=== PATIENT | male | born 1975 | race Caucasian/White ===

== ENCOUNTER 2024-03-13 09:50 | Inpatient (IN) ==
--- NOTE | 2024-03-13 10:24 | Emergency Department Note ---
Impression & Plan Sepsis, Complicated UTI (urinary tract infection), BPH NOS w ur obs/LUTS, Perry catheter in place, BLANE (acute kidney injury) ED Provider Note NAME: TIMOTHY MOLINA AGE: 48 SEX: M : 1975 ARRIVES VIA: Walk-In INFORMANT: Patient ED PROVIDER(S): Mina Johnson MD CHIEF COMPLAINT: Shaking, fevers, perry catheter PLAN: Disposition: Admit MEDICAL DECISION MAKING: The patient is a 48y/o gentleman with past medical history of BPH with recent urinary retention who presents to the emergency department for evaluation of rigors and fevers that began last night in the setting of having cystoscopy yesterday and replacement of catheter after not voiding throughout the day. He reports feeling nauseated and has not been able to keep anything down. He denies any cough or congestion. Denies any diarrhea. On evaluation the patient is uncomfortable, febrile 38.9 with heart rate in the 120s and blood pressure stable. He appears clinically dry. He is rigors. Abdomen is nontender. WBC 12.4 K with neutrophil predominance without left shift. H/H and platelets within normal limits. Chemistry without metabolic acidosis. Creatinine is 1.49 with BUN of 24 consistent with patient's clinically dry appearance/blane. Lactic acid is elevated at 3.8 prior to IV fluid hydration improved to 1.3 subsequently. Total bilirubin is 1.5 with direct bilirubin 0.4, nonspecific with LFTs otherwise normal. HS troponin is 10.7, within normal limits. Procalcitonin is elevated 9.7 consistent with suspicion for sepsis. UA is consistent with infection with WBCs and 4+ bacteria but with negative nitrites. Treatment was initiated for sepsis with IV fluid hydration with a total of 2500 cc of normal saline ordered >30cc/kg for IBW. Empiric antibiotic treatment initiated with IV ceftriaxone. CT of the Abd/pelvis was performed and demonstrates evidence of prostatitis. Case was discussed with Dr. Lopez, [facility] hospitalist, who will evaluate the patient for admission. Triage Nursing notes reviewed and agree them. Prior/external medical records reviewed Vital Signs: reviewed Differential diagnosis: Sepsis, UTI, pneumonia, metabolic, electrolyte abnormalities, cardiac sources, intracerebral event, toxicologic, neurologic, as well as other pathologies. ER treatment provided: See below. Diagnostics interpreted by me: ECG: Sinus tachycardia, 122 bpm,, significant baseline artifact, no overt ST elevation or depression, QTc 418, QRS 86. Cardiac Monitoring: An order for continuous cardiac monitoring was placed and demonstrated Sinus tachycardia, 122 bpm. Laboratory studies: See below Imaging studies: See below Consultation(s): Case was discussed with Dr. Lopez, [facility] hospitalist, who will evaluate the patient for admission. HPI: The patient is a 48y/o gentleman with past medical history of BPH with recent urinary retention who presents to the emergency department for evaluation of rigors and fevers that began last night in the setting of having cystoscopy yesterday and replacement of catheter after not voiding throughout the day. He reports feeling nauseated and has not been able to keep anything down. He denies any cough or congestion. Denies any diarrhea. ROS: See above HPI for pertinent positives & negatives. A total of 10 systems reviewed and were otherwise negative. VITALS:See Below PHYSICAL EXAMINATION: GENERAL: Awake, alert, ill-appearing, rigorous, in no distress HENT: Normocephalic, atraumatic. Oropharynx with dry mucous membranes and otherwise unremarkable. EYES: Normal conjunctiva. Sclera non-icteric. NECK: Supple. No nuchal rigidity. FROM. No JVD. RESPIRATORY: Clear to auscultation. CARDIAC: Tachycardic rate, normal rhythm. Extremities warm and well perfused. Pulses equal. ABDOMEN: Soft, non-distended. No tenderness to palpation. No rebound or guarding. No masses. : Perry catheter in place draining dark yellow urine. MUSCULOSKELETAL: Chest examination reveals no tenderness. The back is symmetrical on inspection without obvious abnormality. There is no CVA tenderness to palpation. No joint edema. LOWER EXTREMITIES: Calves are equal size bilaterally and non-tender. No edema. No discoloration. NEURO: No focal sensory or motor deficits noted. SKIN: No rash or jaundice noted. ED COURSE: Critical Care: I have personally spent greater than 45 minutes of critical care time in the direct management of this patient. This includes bedside care, interpretation of diagnostic studies, and testing, discussion with consultants, patient, and family members, and other required patient management activities. This 45 minutes is in excess of all separately billable procedures. Mina Johnson MD Past Med/Surg History Problem List (Updated 03/14/24 @ 01:58 by Mina Johnson MD) Perry catheter in place (Acute) Sepsis (Acute) BLANE (acute kidney injury) (Acute) Complicated UTI (urinary tract infection) (Acute) BPH NOS w ur obs/LUTS (Acute) Acute urinary retention Prediabetes Surgical History 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 [facility] duodenal blockage Family History Father Prostate cancer Hypertension Sister Thymoma stage 2 Social History Smoking Status: Never smoker Second Hand Exposure: No; Hx Alcohol Use: No Hx Substance Use: No Preferred Language: Citizen Of [place] Communication Ability: Effective Visual Impairment: Limited Hearing Ability: Normal Fitter Placer Required: No Beliefs That Will Affect Care: None marital status: Single Current Living Situation: Family current occupational status: employed Other Information That Helps Us Care for You: No Feels Safe at Home: Yes and No Is there a partner from a previous relationship who is making you feel unsafe now?: No Any Concerns about Your Family Situation: No Would You Like to Speak to Someone About Your Situation: No Safety Concerns: Feels Safe At This Time Childhood Exposure to Second-Hand Smoke: Yes Diet: regular caffeine: Yes Dental Care, Regularly: No Physical Activity Frequency: Daily Physical Activity Frequency Comment: active lifestyle Seatbelt Use: always Sunscreen Use: Yes Assistive Devices: Glasses Allergies Allergies Allergy/AdvReac Type Severity Reaction Status Date / Time No Known Drug Allergies Allergy Verified 02/23/24 08:57 Home Meds Previous Rx's Medication Instructions Recorded tamsulosin 0.4 mg capsule (Flomax) 0.4 mg PO DAILY #30 caps 02/23/24 oxybutynin chloride 5 mg 5 mg PO DAILY #90 tabs 03/12/24 tablet,extended release 24 hr Results & Data (ED) Vital Signs Vital Signs - 24 hr 03/13/24 10:07 03/13/24 10:51 03/13/24 11:08 Temperature 38.9 C H Temperature Source Oral Pulse Rate 125 H 117 H Pulse Rate from SpO2 Sensor Respiratory Rate 22 22 Respiratory Effort / Characteristics Non-Labored Spontaneous Respiratory Depth Normal Blood Pressure 124/73 101/63 Blood Pressure Mean 90 75 Blood Pressure Position Sitting Pulse Oximetry 99 94 92 Oxygen Delivery Method Room Air Room Air Nasal Cannula Oxygen Flow Rate 0 Sepsis Recent Fever Within 48 Hours Yes Sepsis New/Unexplained Change in Mental Status No Sepsis Action Taken by Nursing Physician Notified Oxygen Flow Rate - Titration 2 Pulse Oximetry Post Tiitration 94 03/13/24 11:12 03/13/24 11:15 03/13/24 11:15 Temperature Temperature Source Pulse Rate 105 H Pulse Rate from SpO2 Sensor 106 H Respiratory Rate 21 Respiratory Effort / Characteristics Respiratory Depth Blood Pressure 96/63 L 102/58 L 102/58 L Blood Pressure Mean 74 71 71 Blood Pressure Position Pulse Oximetry 94 Oxygen Delivery Method Oxygen Flow Rate Sepsis Recent Fever Within 48 Hours Sepsis New/Unexplained Change in Mental Status Sepsis Action Taken by Nursing Oxygen Flow Rate - Titration Pulse Oximetry Post Tiitration 03/13/24 11:15 03/13/24 11:15 03/13/24 11:30 Temperature Temperature Source Pulse Rate 101 H 98 H Pulse Rate from SpO2 Sensor Respiratory Rate 18 20 Respiratory Effort / Characteristics Respiratory Depth Blood Pressure 102/58 L 102/58 L 99/61 L Blood Pressure Mean 71 71 74 Blood Pressure Position Pulse Oximetry 95 97 Oxygen Delivery Method Nasal Cannula Nasal Cannula Oxygen Flow Rate 2 2 Sepsis Recent Fever Within 48 Hours Sepsis New/Unexplained Change in Mental Status Sepsis Action Taken by Nursing Oxygen Flow Rate - Titration Pulse Oximetry Post Tiitration 03/13/24 11:45 03/13/24 12:00 03/13/24 12:10 Temperature Temperature Source Pulse Rate 100 H 97 H 102 H Pulse Rate from SpO2 Sensor Respiratory Rate 20 18 Respiratory Effort / Characteristics Respiratory Depth Blood Pressure 114/61 100/61 Blood Pressure Mean 73 78 Blood Pressure Position Pulse Oximetry 95 96 Oxygen Delivery Method Nasal Cannula Nasal Cannula Oxygen Flow Rate 2 2 Sepsis Recent Fever Within 48 Hours Sepsis New/Unexplained Change in Mental Status Sepsis Action Taken by Nursing Oxygen Flow Rate - Titration Pulse Oximetry Post Tiitration Laboratory Data Attestation: I reviewed the patient's lab results. 03/13/24 10:28 03/13/24 10:28 Lab Results 03/13/24 03/13/24 03/13/24 Range/Units 10:28 10:34 10:40 WBC 12.40 H (4.8-10.8) K/ul RBC 5.39 (4.70-6.10) M/uL Hgb 16.2 (14.0-18.0) g/dl POC Hgb 16.3 (14.0-18.0) g/dl Hct 47.7 (42.0-52.0) % POC Hct 48 (42-52) % MCV 88.5 (80.0-100.0) fL MCH 30.1 (25.0-34.0) pg MCHC 34.0 (32.0-36.0) g/dL RDW Std Deviation 42.7 (36.4-46.3) fL RDW Coeff of Mateo 13.1 (11.5-14.5) % Plt Count 188 (130-400) K/uL MPV 10.2 (9.4-12.4) fL Immature Gran % (Auto) 0.4 % Neut % (Auto) 91.9 % Lymph % (Auto) 4.2 % [place] % (Auto) 3.3 % Eos % (Auto) 0.0 % Baso % (Auto) 0.2 % Neut # (Auto) 11.40 H (1.40-6.50) K/uL Lymph # (Auto) 0.52 L (1.20-3.40) K/uL [place] # (Auto) 0.41 (0.11-0.59) K/uL Eos # (Auto) 0.00 (0.00-0.50) K/uL Baso # (Auto) 0.02 (0.00-0.20) K/uL Immature Gran # (Auto) 0.05 (0.01-0.20) K/uL Toxic Vacuolation 1+ POC Sodium 136 (135-144) mmol/L Sodium 136 (136-145) mmol/L POC Potassium 3.9 (3.3-5.0) mmol/L Potassium 4.1 (3.5-5.1) mmol/L POC Chloride 98 L (101-112) mmol/L Chloride 99 (98-107) mmol/L Carbon Dioxide 26 (21-32) mmol/L POC Total CO2 23 L (24-31) mmol/L Anion Gap 11 (3-11) POC Anion Gap 20.0 (16-25) mmol/L POC BUN 23 H (7-18) mg/dl BUN 24 H (6-23) mg/dl Creatinine 1.49 H (0.6-1.4) mg/dl POC Creatinine 1.6 H (0.6-1.3) mg/dl Est Cr Clr Drug Dosing 67.5 ml/min Est GFR ( Amer) 63.0 ml/min Est GFR (Non-Af Amer) 54.3 ml/min BUN/Creatinine Ratio 16.1 (10-20) Glucose 124 H (70-99(Fasting)) mg/dl POC Glucose (other) 119 H (70-99) mg/dl Lactate 3.8 H* (0.4-2.0) mmol/L Calcium 9.3 (8.6-10.3) mg/dl POC Ioniz Calcium Haritha 1.11 L (1.12-1.32) mmol/l Magnesium 1.7 (1.7-2.4) mg/dl Total Bilirubin 1.5 H (0.2-1.0) mg/dl Direct Bilirubin 0.4 H (0-0.2) mg/dl AST 21 (13-39) U/L ALT 27 (7-52) U/L Alkaline Phosphatase 62 (34-104) U/L Troponin I High Sens 10.7 (0-20) pg/ml Total Protein 7.5 (6.0-8.3) gm/dl Albumin 4.5 (3.4-5.0) gm/dl Procalcitonin 9.78 H (0-0.5) ng/ml Urine Color Dark Yellow Urine Appearance Turbid A (Clear) Urine pH 5.5 (4.5-7.5) Ur Specific [place] 1.029 (1.000-1.030) Urine Protein 3+ H (Negative) Urine Glucose (UA) Negative (Negative) Urine Ketones Trace H (Negative) Urine Blood 3+ H (Negative) Urine Nitrite Negative (Negative) Urine Bilirubin Negative (Negative) Urine Urobilinogen Negative (Negative) Ur Leukocyte Esterase 2+ H (Negative) Urine WBC (Auto) >50 H (0-5) /hpf Urine RBC (Auto) >20 H (0-2) /hpf U Hyaline Cast (Auto) 6-10 H (0-2) /lpf U Epithel Cells (Auto) 3-5 H (0-2) /hpf Urine Bacteria (Auto) 4+ H (None Seen) Enterobacterales (PCR) DETECTED A (NotDetected) blaIMP Car res Gene PCR Not Detected (NotDetected) KPC-Carbap Res Gene PCR Not Detected (NotDetected) blaNDM Car Res Gene PCR Not Detected (NotDetected) OXA-48 Carbapenem Resis Gene (PCR) Not Detected (NotDetected) blaVIM Car Res Gene PCR Not Detected (NotDetected) CTX-M Gene Resistance (PCR) Not Detected (NotDetected) Bld Cult ID Panel PCR See PCR Comment (NotDetected) 03/13/24 Range/Units 12:10 WBC (4.8-10.8) K/ul RBC (4.70-6.10) M/uL Hgb (14.0-18.0) g/dl POC Hgb (14.0-18.0) g/dl Hct (42.0-52.0) % POC Hct (42-52) % MCV (80.0-100.0) fL MCH (25.0-34.0) pg MCHC (32.0-36.0) g/dL RDW Std Deviation (36.4-46.3) fL RDW Coeff of Mateo (11.5-14.5) % Plt Count (130-400) K/uL MPV (9.4-12.4) fL Immature Gran % (Auto) % Neut % (Auto) % Lymph % (Auto) % [place] % (Auto) % Eos % (Auto) % Baso % (Auto) % Neut # (Auto) (1.40-6.50) K/uL Lymph # (Auto) (1.20-3.40) K/uL [place] # (Auto) (0.11-0.59) K/uL Eos # (Auto) (0.00-0.50) K/uL Baso # (Auto) (0.00-0.20) K/uL Immature Gran # (Auto) (0.01-0.20) K/uL Toxic Vacuolation POC Sodium (135-144) mmol/L Sodium (136-145) mmol/L POC Potassium (3.3-5.0) mmol/L Potassium (3.5-5.1) mmol/L POC Chloride (101-112) mmol/L Chloride (98-107) mmol/L Carbon Dioxide (21-32) mmol/L POC Total CO2 (24-31) mmol/L Anion Gap (3-11) POC Anion Gap (16-25) mmol/L POC BUN (7-18) mg/dl BUN (6-23) mg/dl Creatinine (0.6-1.4) mg/dl POC Creatinine (0.6-1.3) mg/dl Est Cr Clr Drug Dosing ml/min Est GFR ( Amer) ml/min Est GFR (Non-Af Amer) ml/min BUN/Creatinine Ratio (10-20) Glucose (70-99(Fasting)) mg/dl POC Glucose (other) (70-99) mg/dl Lactate 1.3 (0.4-2.0) mmol/L Calcium (8.6-10.3) mg/dl POC Ioniz Calcium Haritha (1.12-1.32) mmol/l Magnesium (1.7-2.4) mg/dl Total Bilirubin (0.2-1.0) mg/dl Direct Bilirubin (0-0.2) mg/dl AST (13-39) U/L ALT (7-52) U/L Alkaline Phosphatase (34-104) U/L Troponin I High Sens (0-20) pg/ml Total Protein (6.0-8.3) gm/dl Albumin (3.4-5.0) gm/dl Procalcitonin (0-0.5) ng/ml Urine Color Urine Appearance (Clear) Urine pH (4.5-7.5) Ur Specific [place] (1.000-1.030) Urine Protein (Negative) Urine Glucose (UA) (Negative) Urine Ketones (Negative) Urine Blood (Negative) Urine Nitrite (Negative) Urine Bilirubin (Negative) Urine Urobilinogen (Negative) Ur Leukocyte Esterase (Negative) Urine WBC (Auto) (0-5) /hpf Urine RBC (Auto) (0-2) /hpf U Hyaline Cast (Auto) (0-2) /lpf U Epithel Cells (Auto) (0-2) /hpf Urine Bacteria (Auto) (None Seen) Enterobacterales (PCR) (NotDetected) blaIMP Car res Gene PCR (NotDetected) KPC-Carbap Res Gene PCR (NotDetected) blaNDM Car Res Gene PCR (NotDetected) OXA-48 Carbapenem Resis Gene (PCR) (NotDetected) blaVIM Car Res Gene PCR (NotDetected) CTX-M Gene Resistance (PCR) (NotDetected) Bld Cult ID Panel PCR (NotDetected) Administered Medications Heparin Sodium (Porcine) (Heparin Sod 5,000 Unit/0.5 Ml Vial) 5,000 units SQ Q8 MAYNOR Stop: 04/12/24 17:01 Last Admin: 03/13/24 18:44 Dose: Not Given Documented By: DARREN Magnesium Oxide (Magnesium Oxide 400 Mg Tab) 400 mg PO QAM MAYNOR Stop: 04/12/24 15:14 Last Admin: 03/13/24 15:59 Dose: 400 mg Documented By: NORIS Discontinued Medications Acetaminophen (Acetaminophen 325 Mg Tab) 650 mg PO Q4H PRN PRN Reason: Pain or Fever Stop: 04/12/24 17:01 Last Admin: 03/14/24 00:46 Dose: 650 mg Documented By: Admin: 03/13/24 17:26 Dose: 650 mg Documented By: DIAN Sodium Chloride (Nss) 1,000 mls @ 999 mls/hr IV .Q1H1M MAYNOR Stop: 03/13/24 12:30 Last Infusion: 03/13/24 11:43 Dose: Infused Documented By: Admin: 03/13/24 10:34 Dose: 999 mls/hr Documented By: Infusion: 03/13/24 10:34 Dose: Infused Documented By: Admin: 03/13/24 10:30 Dose: 999 mls/hr Documented By: FARHAT Acetaminophen (Ofirmev) 1,000 mg in 100 mls @ 400 mls/hr IV NOW STA Stop: 03/13/24 10:37 Last Infusion: 03/13/24 10:51 Dose: Infused Documented By: Admin: 03/13/24 10:30 Dose: 400 mls/hr Documented By: FARHAT Ceftriaxone Sodium (Rocephin) 2,000 mg in 50 mls @ 100 mls/hr IV NOW STA Stop: 03/13/24 10:52 Last Infusion: 03/13/24 11:00 Dose: Infused Documented By: Admin: 03/13/24 10:30 Dose: 100 mls/hr Documented By: FARHAT Famotidine (Pepcid 20mg Iv Push) 20 mg in 5 mls @ 2.5 mls/min IV NOW STA Stop: 03/13/24 10:32 Last Admin: 03/13/24 10:41 Dose: 2.5 mls/min Documented By: FARHAT Sodium Chloride (Nss) 500 mls @ 999 mls/hr IV .Q31M ONE Stop: 03/13/24 12:27 Last Infusion: 03/13/24 12:39 Dose: Infused Documented By: Admin: 03/13/24 12:06 Dose: 999 mls/hr Documented By: SANDRA Sodium Chloride (Nss) 500 mls @ 999 mls/hr IV .Q31M ONE Stop: 03/13/24 15:06 Last Infusion: 03/13/24 15:15 Dose: Infused Documented By: Admin: 03/13/24 14:44 Dose: 999 mls/hr Documented By: SANDRA Parenteral Electrolytes (Plasma-Lyte A Ph 7.4) 1,000 mls @ 125 mls/hr IV .Q8H MAYNOR Stop: 03/13/24 23:14 Last Infusion: 03/14/24 00:10 Dose: Infused Documented By: Admin: 03/13/24 16:10 Dose: 125 mls/hr Documented By: NORIS Ioversol (Optiray 320 100ml) 94 ml IV ONCE ONE Stop: 03/13/24 10:58 Last Admin: 03/13/24 10:57 Dose: 94 ml Documented By: NEIL Ondansetron HCl (Ondansetron Inj 2 Mg/Ml 2 Ml Vial) 4 mg IV NOW STA Stop: 03/13/24 10:32 Last Admin: 03/13/24 10:41 Dose: 4 mg Documented By: FARHAT Ondansetron HCl (Ondansetron Inj 2 Mg/Ml 2 Ml Vial) 4 mg IV NOW STA Stop: 03/14/24 00:53 Last Admin: 03/14/24 01:15 Dose: 4 mg Documented By: RODOLFO Imaging Data Radiologist's Impression: Chest X-Ray 03/13/24 10:18 XR chest 1V portable CLINICAL HISTORY: Sepsis. COMPARISON STUDY: No previous studies for comparison. FINDINGS: There are low lung volumes. Lungs are clear. There is no pneumothorax or pleural effusion. Cardiac size is normal. Mediastinal contours are normal. There is no evidence for pulmonary edema. IMPRESSION: No acute cardiopulmonary findings. ACT 112: Negative or not required by law. Electronically signed by: Clive Funez M.D. 03/13/2024 11:20 AM Abdomen/Pelvis CT 03/13/24 10:[address] WITH IV CONTRAST CT DOSE: 1433.38 mGy.cm HISTORY: ?urosepsis TECHNIQUE: Multiaxial CT images of the abdomen and pelvis were performed following the use of intravenous contrast. A dose lowering technique was utilized adhering to the principles of ALARA. COMPARISON STUDY: Abdomen and pelvis CT 02/19/2024. FINDINGS: Bibasilar linear densities consistent with subsegmental atelectasis. No pneumoperitoneum. No pneumatosis. Small fat-containing umbilical hernia again noted. No hepatic or splenic masses. The adrenal glands, pancreas, and kidneys are unremarkable. Normal gallbladder. The ureters are normal and course and caliber. The urothelial thickening within the left pelvis and left ureter have resolved. The bladder completely decompressed by Perry catheter which appears in good position. This results in difficult evaluation of the bladder. The bladder appears to be thick-walled with adjacent fat stranding. Therefore, this favors a cystitis. The prostate gland and seminal vesicles remain enlarged. Minimal perirectal fat stranding is likely reactive to the bladder. No definite bowel wall thickening or obstruction. Normal appendix. There is also mild fat stranding adjacent to the seminal vesicles and prostate gland which has slightly progressed. This could be due to an associated prostatitis. No fluid collections to suggest an abscess. Normal caliber abdominal aorta. No retroperitoneal or pelvic lymphadenopathy. No pelvic free fluid. IMPRESSION: 1. The bladder is decompressed by a Perry catheter which is in good position. 2. Bladder wall thickening with adjacent fat stranding likely representing a cystitis. 3. There is also mild fat stranding adjacent to the enlarged prostate gland and seminal vesicles which may represent an associated prostatitis. 4. Minimal perirectal fat stranding is likely reactive to the bladder/prostate gland abnormality. No definite bowel wall thickening to suggest a proctitis. 4. Additional findings as described above. ACT 112: Negative or not required by law. Electronically signed by: Gautam Holt M.D. 03/13/2024 11:21 AM Discharge Plan Visit Data Chief Complaint: Fever Stated Complaint: POSSIBLE INFECTION, NAUSEA, DEHYDRATED, FEVER ED Provider: Mina Johnson Discharge Problem: Sepsis, Complicated UTI (urinary tract infection), BPH NOS w ur obs/LUTS, Perry catheter in place, BLANE (acute kidney injury) Patient Disposition: Admitted As Inpatient Discharge Instructions Interventions: ED Discharge Assessment Last Done: 03/13/24 16:06 Discharge Problem: Sepsis Qualifiers: Sepsis type: sepsis due to unspecified organism Sepsis acute organ dysfunction status: unspecified Qualified Code(s): A41.9 - Sepsis, unspecified organism
[2024-03-13] MEDS: SODIUM CHLORIDE 0.9% 1,000 ML IV SCH (10:30)
[2024-03-13] MEDS: cefTRIAXone SODIUM 2,000 MG/50 ML BAG IV STA (10:30)
[2024-03-13] MEDS: ACETAMINOPHEN 1,000 MG/100 ML VIAL IV STA (10:30)
[2024-03-13] MEDS: FAMOTIDINE 20MG IV PUSH 20 MG/5 ML SYR IV STA (10:41)
[2024-03-13] MEDS: ONDANSETRON INJ 2 MG/ML 2 ML VIAL IV STA (10:41)
[2024-03-13] MEDS: OPTIRAY 320 100ml IV ONE (10:57)
[2024-03-13 10:59] LABS: Hematocrit (blood only) 47.7 % (42.0-52.0); Hemoglobin 16.2 g/dl (14.0-18.0); Mean Corpuscular Hemoglobin 30.1 pg (25.0-34.0); Mean Corpuscular Volume 88.5 fL (80.0-100.0); Mean Platelet Volume 10.2 fL (9.4-12.4); Platelet Count 188 K/uL (130-400); RDW Coefficient of Variation 13.1 % (11.5-14.5); RDW Standard Deviation 42.7 fL (36.4-46.3); Red Blood Count 5.39 M/uL (4.70-6.10)
[2024-03-13 11:06] LABS: Albumin Level 4.5 gm/dl (3.4-5.0); BUN Creatinine Ratio 16.1 (10-20); Bilirubin Direct 0.4 mg/dl (0-0.2); Bilirubin,Total 1.5 mg/dl (0.2-1.0); Calcium 9.3 mg/dl (8.6-10.3); Creatinine Clr Calc Pharmacy 67.5 ml/min; Est GFR (Non-African American) 54.3 ml/min; Magnesium 1.7 mg/dl (1.7-2.4); Potassium 4.1 mmol/L (3.5-5.1); Total Protein 7.5 gm/dl (6.0-8.3)
[2024-03-13 11:12] LABS: Troponin I High Sensitivity 10.7 pg/ml (0-20)
[2024-03-13 11:21] LABS: Toxic Vacuolation 1+
--- NOTE | 2024-03-13 11:21 | XRay Report ---
XR chest 1V portable CLINICAL HISTORY: Sepsis. COMPARISON STUDY: No previous studies for comparison. FINDINGS: There are low lung volumes. Lungs are clear. There is no pneumothorax or pleural effusion. Cardiac size is normal. Mediastinal contours are normal. There is no evidence for pulmonary edema. IMPRESSION: No acute cardiopulmonary findings. ACT 112: Negative or not required by law. Electronically signed by: Clive Funez M.D. 03/13/2024 11:20 AM
--- NOTE | 2024-03-13 11:22 | CT Scan Report ---
ABDOMEN AND PELVIS CT WITH IV CONTRAST CT DOSE: 1433.38 mGy.cm HISTORY: ?urosepsis TECHNIQUE: Multiaxial CT images of the abdomen and pelvis were performed following the use of intrave nous contrast. A dose lowering technique was utilized adhering to the principles of ALARA. COMPARISON STUDY: Abdomen and pelvis CT 02/19/2024. FINDINGS: Bibasilar linear densities consistent with subsegmental atelectasis. No pneumoperitoneum. N o pneumatosis. Small fat-containing umbilical hernia again noted. No hepatic or splenic masses. The a drenal glands, pancreas, and kidneys are unremarkable. Normal gallbladder. The ureters are normal and course and caliber. The urothelial thickening within the left pelvis and left ureter have resolved. The bladder completely decompressed by Vela catheter which appears in good position. This results in difficult evaluation of the bladder. The bladder appears to be thick-walled with adjacent fat strand ing. Therefore, this favors a cystitis. The prostate gland and seminal vesicles remain enlarged. Mini mal perirectal fat stranding is likely reactive to the bladder. No definite bowel wall thickening or obstruction. Normal appendix. There is also mild fat stranding adjacent to the seminal vesicles and p rostate gland which has slightly progressed. This could be due to an associated prostatitis. No fluid collections to suggest an abscess. Normal caliber abdominal aorta. No retroperitoneal or pelvic lymp hadenopathy. No pelvic free fluid. IMPRESSION: 1. The bladder is decompressed by a Vela catheter which is in good position. 2. Bladder wall thickening with adjacent fat stranding likely representing a cystitis. 3. There is also mild fat stranding adjacent to the enlarged prostate gland and seminal vesicles whic h may represent an associated prostatitis. 4. Minimal perirectal fat stranding is likely reactive to the bladder/prostate gland abnormality. No definite bowel wall thickening to suggest a proctitis. 4. Additional findings as described above. ACT 112: Negative or not required by law. Electronically signed by: Gautam Holt M.D. 03/13/2024 11:21 AM
[2024-03-13 11:24] LABS: Appearance Urine Turbid (Clear); Bacteria Urine Automated 4+ (None Seen); Bilirubin Urine Negative (Negative); Blood Urine 3+ (Negative); Color Urine Dark Yellow; Glucose Urine UA Negative (Negative); Ketones Urine Trace (Negative); Leukocyte Esterase Urine 2+ (Negative); Nitrite Urine Negative (Negative); Protein Urine 3+ (Negative); RBC Urine Automated >20 /hpf (0-2); Specific Gravity Urine 1.029 (1.000-1.030); Urobilinogen Urine Negative (Negative); WBC Urine Automated >50 /hpf (0-5); pH Urine 5.5 (4.5-7.5)
[2024-03-13 11:24] LABS: Basophils # (auto) 0.02 K/uL (0.00-0.20); Basophils % (auto) 0.2 %; Immature Granulocytes # (auto) 0.05 K/uL (0.01-0.20); Immature Granulocytes % (auto) 0.4 %; Lymphocytes # (auto) 0.52 K/uL (1.20-3.40); Lymphocytes % (auto) 4.2 %; Monocytes # (auto) 0.41 K/uL (0.11-0.59); Monocytes % (auto) 3.3 %; Neutrophils % (auto) 91.9 %
[2024-03-13] MEDS: SODIUM CHLORIDE 0.9% 500 ML IV ONE ×2 (12:06→14:44)
--- NOTE | 2024-03-13 12:13 | History & Physical Report ---
Date of Service March 13, 2024 Assessment & Plan (1) Complicated UTI (urinary tract infection): Plan: Sepsis, acute bacterial prostatitis Infected appearing UA Tachycardic, febrile, hypotensive, with leukocytosis post cystoscopy/catheter exchange No prior history of resistant infections on file Procalcitonin elevated consistent with gram-negative sepsis -Patient meets sepsis criteria. S/p 2000 cc NSS in the ER which meets IBW sepsis recommendations Repeat lactate normalized Continue Rocephin, follow UCx, BCx - Recommended extended course of anbx at least 2 weeks for acute bacterial prostatis (2) BPH NOS w ur obs/LUTS: Plan: Vela in place, bladder decompressed on CT Bladder scan as needed. No signs of obstruction at admitting assessment Can continue outpatient urology follow-up for BPH/LUTS; no evidence of acute obstruction on admission. (3) Prediabetes: Plan: BSG 124 admission. Goal [id number] Trend BMP daily, if above goal can add SSI (4) BLANE (acute kidney injury): Plan: BLANE -Admission creatinine 1.49, baseline creatinine approximately 1 Suspect prerenal in with urosepsis. Patient does have history of urinary obstruction however bladder is decompressed on CT Trend daily Plan DVT prophylaxis: Heparin subcu due to BLANE, convert to Lovenox if downtrending/improved Diet: Regular Disposition: PCU for gram-negative sepsis, downgrade once stabilized CODE STATUS: Full code History of Present Illness Primary Care Provider: Izaiah Eason DO Aguila is a 48-year-old male with past medical history of BPH, urinary retention, prediabetes presents to the ER with fever/rigors post cystoscopy and following catheter exchange. Third with minimal drainage overnight. CTA/P: Bladder decompressed and catheter in good position. Bladder wall thickening consistent with cystitis, fat stranding adjacent to prostate gland? Prostatitis. Perirectal fat stranding likely reactive Leukocytosis of 12.4, lactate elevated on admission at 3.8 Bilirubin mildly elevated without transaminitis Procalcitonin elevated ____ Patient seen in the ER with his present. Reports he had a Vela exchanged yesterday which relieved his obstruction however was nauseous and had felt progressively unwell overnight. Endorses fever, chills, rigors, some discomfort at his Vela site, and poor output. Feels very dehydrated. Is nauseous. Denies diarrhea/wellington colored stools. No chest pain or chest pressure. Denies other medical problems including heart problems and lung problems. Medical History: Reviewed Medications: Reviewed Surgical History: Reviewed Family history: Reviewed Allergies: Reviewed Social History: Denies tobacco/etoh use Code Status: Full Allergies Allergy/AdvReac Type Severity Reaction Status Date / Time No Known Drug Allergies Allergy Verified 02/23/24 08:57 Home Medications Medication Instructions Recorded Confirmed Type tamsulosin 0.4 mg capsule (Flomax) 0.4 mg PO DAILY #30 caps 02/23/24 03/13/24 Rx oxybutynin chloride 5 mg 5 mg PO DAILY #90 tabs 03/12/24 03/13/24 Rx tablet,extended release 24 hr Past Med/Surg History Problem List BLANE (acute kidney injury) Complicated UTI (urinary tract infection) BPH NOS w ur obs/LUTS Acute urinary retention Prediabetes Surgical History 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 old [facility] duodenal blockage Family History Father Prostate cancer Hypertension Sister Thymoma stage 2 Social History Smoking Status: Never smoker Second Hand Exposure: No; Hx Alcohol Use: No Hx Substance Use: No Preferred Language: [place] Communication Ability: Effective Visual Impairment: Limited Hearing Ability: Normal Blanket Binder Required: No marital status: Single Current Living Situation: Family current occupational status: employed Feels Safe at Home: Yes Childhood Exposure to Second-Hand Smoke: Yes Diet: regular caffeine: Yes Dental Care, Regularly: No Physical Activity Frequency: Daily Physical Activity Frequency Comment: active lifestyle Seatbelt Use: always Sunscreen Use: Yes Physical Exam Physical Exam: General: A&Ox3. NAD. Cooperative. HEENT: Atraumatic, normocephalic. NORMA. vision/hearing grossly intact Pulm: CTAB A&P. -wheezes, -rales, -rhonchi. Symmetrical chest rise. No increased work of breathing. No respiratory distress. Cardiac: RRR, -mrg. Radial pulses intact and symmetrical. Abdominal: Nontender, nondistended, soft. BS present. : Vela in place draining dark yellow urine Ext: warm, dry Results & Data Results & Data Vital Signs (Past 12 Hours) Vital Signs Temp Pulse Resp BP Pulse Ox O2 Del Method O2 Flow Rate 03/13/24 11:45 100 H 20 114/61 95 Nasal Cannula 2 03/13/24 11:30 98 H 20 99/61 L 97 Nasal Cannula 2 03/13/24 11:15 101 H 18 102/58 L 95 Nasal Cannula 2 03/13/24 11:15 102/58 L 03/13/24 11:15 102/58 L 03/13/24 11:15 102/58 L 03/13/24 11:12 105 H 21 96/63 L 94 03/13/24 11:08 92 Nasal Cannula 0 03/13/24 10:51 117 H 22 101/63 94 Room Air 03/13/24 10:07 38.9 C H 125 H 22 124/73 99 Room Air PG Care Time/CCT Total # of Minutes Spent Total Time Spent with Patient: Total time spent is greater than 50% in coordination of care (as documented) at patient's floor/unit and/or counseling patient: Coding Level of Care Code 47074 INT INP/OBS CARE 3/75MIN Diagnoses Complicated UTI (urinary tract infection) N39.0 BPH NOS w ur obs/LUTS N40.1 Prediabetes R73.03 BLANE (acute kidney injury) N17.9
[2024-03-13 12:28] LABS: iSTAT Creatinine 1.6 mg/dl (0.6-1.3); iSTAT Hemoglobin 16.3 g/dl (14.0-18.0); iSTAT Ionized Calcium 1.11 mmol/l (1.12-1.32); iSTAT Potassium 3.9 mmol/L (3.3-5.0)
[2024-03-13] MEDS: MAGNESIUM OXIDE 400 MG TAB PO SCH (15:59)
[2024-03-13] MEDS: PLASMA-LYTE A 1,000 ML IV SCH (16:10)
[2024-03-13] MEDS: ACETAMINOPHEN 325 MG TAB PO PRN (17:26)
[2024-03-13] MEDS: HEPARIN SOD 5,000 UNIT/0.5 ML VIAL SQ SCH (18:44)
[2024-03-14 00:49] LABS: A calco-baum cmplx NotReported Not Detected (NotDetected); Bact fragilis Not Reported Not Detected (NotDetected); Blood Culture Id Panel See PCR Comment (NotDetected); C auris Not Reported Not Detected (NotDetected); CTX-M Resistant Gene Not Detected (NotDetected); Calbicans Not Reported Not Detected (NotDetected); Candida glabrata Not Reported Not Detected (NotDetected); Candida krusei Not Reported Not Detected (NotDetected); Cneoformans/gatti Not Reported Not Detected (NotDetected); Cparapsilosis Not Reported Not Detected (NotDetected); E cloacae compx Not Reported Not Detected (NotDetected); Efaecalis Not Reported Not Detected (NotDetected); Efaecium Not Reported Not Detected (NotDetected); Enterobacterales Not Reported DETECTED (NotDetected); Escherichia coli Not Reported Not Detected (NotDetected); H influenzae Not Reported Not Detected (NotDetected); IMP Resistant Gene Not Detected (NotDetected); K aerogenes Not Reported Not Detected (NotDetected); KPC Resistant Gene Not Detected (NotDetected); Koxytoca Not Reported Not Detected (NotDetected); Kpneumoniae grp Not Reported Not Detected (NotDetected); Lmonocyt Not Reported Not Detected (NotDetected); N meningitidis Not Reported Not Detected (NotDetected); NDM Resistant Gene Not Detected (NotDetected); OXA 48 Like Resistant Gene Not Detected (NotDetected); P aeruginosa Not Reported Not Detected (NotDetected); Proteus spp Not Reported Not Detected (NotDetected); Salmonella spp Not Reported Not Detected (NotDetected); Staph lugdunensis Not Reported Not Detected (NotDetected); Staph spp. Not Reported Not Detected (NotDetected); Staphaureus Not Reported Not Detected (NotDetected); Staphepi Not Reported Not Detected (NotDetected); Stenmaltophilia Not Reported Not Detected (NotDetected); Strep agal(GrpB) Not Reported Not Detected (NotDetected); Strep pneum Not Reported Not Detected (NotDetected); Strep pyog (GrpA) Not Reported Not Detected (NotDetected); Strep spp Not Reported Not Detected (NotDetected); VIM Resistant Gene Not Detected (NotDetected)
[2024-03-14 01:04] LABS: Enterobacterales DETECTED (NotDetected)
[2024-03-14] MEDS: ONDANSETRON INJ 2 MG/ML 2 ML VIAL IV STA (01:15)
[2024-03-14] MEDS: ACETAMINOPHEN 1,000 MG/100 ML VIAL IV PRN (02:34)
[2024-03-14] MEDS: MEROPENEM 500 MG in SYRINGE 0 ML IV SCH (02:53)
[2024-03-14 07:15] LABS: BUN Creatinine Ratio 22.5 (10-20); Calcium 8.2 mg/dl (8.6-10.3); Creatinine Clr Calc Pharmacy 99.1 ml/min; Est GFR (African American) 99.6 ml/min; Est GFR (Non-African American) 85.9 ml/min; Potassium 3.9 mmol/L (3.5-5.1)
[2024-03-14 07:32] LABS: Hematocrit (blood only) 42.8 % (42.0-52.0); Hemoglobin 14.4 g/dl (14.0-18.0); Mean Corpuscular Hemoglobin 29.6 pg (25.0-34.0); Mean Corpuscular Hgb Conc 33.6 g/dL (32.0-36.0); Mean Corpuscular Volume 87.9 fL (80.0-100.0); Mean Platelet Volume 10.7 fL (9.4-12.4); Platelet Count 121 K/uL (130-400); RDW Coefficient of Variation 13.4 % (11.5-14.5); RDW Standard Deviation 43.4 fL (36.4-46.3); Red Blood Count 4.87 M/uL (4.70-6.10); White Blood Count 9.54 K/ul (4.8-10.8)
[2024-03-14 07:33] LABS: Basophils # (auto) 0.01 K/uL (0.00-0.20); Basophils % (auto) 0.1 %; Immature Granulocytes # (auto) 0.06 K/uL (0.01-0.20); Immature Granulocytes % (auto) 0.6 %; Lymphocytes # (auto) 0.57 K/uL (1.20-3.40); Monocytes # (auto) 0.68 K/uL (0.11-0.59); Monocytes % (auto) 7.1 %; Neutrophils # (auto) 8.22 K/uL (1.40-6.50); Neutrophils % (auto) 86.2 %
[2024-03-14] MEDS: TAMSULOSIN HCL 0.4 MG CAP PO SCH (09:03)
[2024-03-14] MEDS: OXYBUTYNIN CHLORIDE XL 5 MG TABCR PO SCH (09:03)
[2024-03-14] MEDS ORDERED: cefTRIAXone SODIUM 2,000 MG/50 ML BAG IV SCH (10:30)
[2024-03-14] MEDS: ONDANSETRON INJ 2 MG/ML 2 ML VIAL IV PRN (12:53)
[2024-03-14] MEDS: CEFEPIME 2,000 MG in SYRINGE 0 ML IV SCH (14:25)
--- NOTE | 2024-03-14 19:04 | Hospitalist Progress Note ---
Date of Service March 14, 2024 Assessment & Plan (1) Complicated UTI (urinary tract infection): Plan: Sepsis, acute bacterial prostatitis Infected appearing UA Tachycardic, febrile, hypotensive, with leukocytosis post cystoscopy/catheter exchange on admission No prior history of resistant infections on file Procalcitonin elevated consistent with gram-negative sepsis - Patient meets sepsis criteria. S/p 2000 cc NSS in the ER which meets IBW sepsis recommendations Repeat lactate normalized Urine culture revealing gram-negative bacilli, blood culture revealing gram- negative bacteremiaEnterobacterales > Antibiotic switched to Cefepime - Recommended extended course of anbx at least 2 weeks for acute bacterial prostatis (2) BPH NOS w ur obs/LUTS: Plan: Vela in place, bladder decompressed on CT Bladder scan as needed. No signs of obstruction at admitting assessment Can continue outpatient urology follow-up for BPH/LUTS; no evidence of acute obstruction on admission. (3) Prediabetes: Plan: BSG 124 admission. Goal [id number] Trend BMP daily, if above goal can add SSI (4) BLANE (acute kidney injury): Plan: BLANE -Admission creatinine 1.49, baseline creatinine approximately 1 Suspect prerenal in with urosepsis. Patient does have history of urinary obstruction however bladder is decompressed on CT Trend daily Plan Updated patient's mother at bedside Discussed culture results/antibiotics with pharmacy Switched from meropenem to cefepime Ordered Zofran as needed DVT prophylaxis: Heparin subcu due to BLANE, convert to Lovenox if downtrending/improved Diet: Regular Disposition: PCU for gram-negative sepsis, downgrade once stabilized CODE STATUS: Full code Admission and Anticipated Discharge Date Admission Date: March 13, 2024 Subjective Patient seen and evaluated at bedside with his mother. He reports that he is feeling slightly better compared to the previous couple days. He notes that he had some nausea and bladder spasms earlier, which were relieved with Zofran/oxybutynin/IV Tylenol. We discussed the preliminary results of his urine culture and blood cultures, as well as his change in antibiotics. No additional complaints or concerns at this time. Physical Exam Physical Exam: General: A&Ox3. NAD. Cooperative. HEENT: Atraumatic, normocephalic. NORMA. vision/hearing grossly intact Pulm: CTAB A&P. -wheezes, -rales, -rhonchi. Symmetrical chest rise. No increased work of breathing. No respiratory distress. Cardiac: RRR, -mrg. Radial pulses intact and symmetrical. Abdominal: Nontender, nondistended, soft. BS present. : Vela in place draining dark yellow urine Ext: warm, dry Results & Data Results & Data Vital Signs (Past 12 Hours) Vital Signs Temp Pulse Pulse Resp BP Pulse Ox O2 Del Method 03/14/24 16:20 109 H 03/14/24 16:03 37.7 C H 101 H 18 129/71 92 Room Air 03/14/24 12:06 36.9 C 66 18 121/73 91 Room Air 03/14/24 07:50 37.1 C 95 H 18 116/71 93 Room Air Laboratory Results Reviewed CBC Reviewed chemistries Reviewed urine culture Reviewed blood cultures PG Care Time/CCT Total # of Minutes Spent Total Time Spent with Patient: Total time spent is greater than 50% in coordination of care (as documented) at patient's floor/unit and/or counseling patient: Coding Level of Care Code 41878 SUB INP/OBS CARE 3/50MIN Diagnoses Complicated UTI (urinary tract infection) N39.0 BPH NOS w ur obs/LUTS N40.1 Prediabetes R73.03 BLANE (acute kidney injury) N17.9
[2024-03-14] MEDS: KETOROLAC TROMETHAMINE 15 MG/ML VIAL IV ONE (20:38)
--- NOTE | 2024-03-14 22:19 | Electrocardiogram Report ---
Test Reason : Blood Pressure : */* mmHG Vent. Rate : 122 BPM Atrial Rate : 122 BPM P-R Int : 100 ms QRS Dur : 86 ms QT Int : 294 ms P-R-T Axes : 70 89 -15 degrees QTcB Int : 418 ms Poor data quality, interpretation may be adversely affected Probable Sinus tachycardia Abnormal ECG No previous ECGs available Confirmed by Armin Daugherty ([id number]) on 03/14/2024 10:18:58 PM Referred By: REFERRED SELF Confirmed By: Armin Daugherty
[2024-03-15 07:20] LABS: Hematocrit (blood only) 41.8 % (42.0-52.0); Hemoglobin 14.2 g/dl (14.0-18.0); Mean Corpuscular Hemoglobin 30.2 pg (25.0-34.0); Mean Corpuscular Volume 88.9 fL (80.0-100.0); Mean Platelet Volume 10.9 fL (9.4-12.4); Platelet Count 114 K/uL (130-400); RDW Coefficient of Variation 13.4 % (11.5-14.5); RDW Standard Deviation 44.1 fL (36.4-46.3); White Blood Count 5.19 K/ul (4.8-10.8)
[2024-03-15 07:36] LABS: BUN Creatinine Ratio 20.8 (10-20); Calcium 8.1 mg/dl (8.6-10.3); Creatinine Clr Calc Pharmacy 99.3 ml/min; Est GFR (African American) 100.8 ml/min; Est GFR (Non-African American) 86.9 ml/min; Potassium 3.7 mmol/L (3.5-5.1)
[2024-03-15 07:39] LABS: Basophils # (auto) 0.01 K/uL (0.00-0.20); Basophils % (auto) 0.2 %; Eosinophils # (auto) 0.01 K/uL (0.00-0.50); Eosinophils % (auto) 0.2 %; Immature Granulocytes # (auto) 0.02 K/uL (0.01-0.20); Immature Granulocytes % (auto) 0.4 %; Lymphocytes # (auto) 0.56 K/uL (1.20-3.40); Lymphocytes % (auto) 10.8 %; Monocytes # (auto) 0.46 K/uL (0.11-0.59); Monocytes % (auto) 8.9 %; Neutrophils # (auto) 4.13 K/uL (1.40-6.50); Neutrophils % (auto) 79.5 %
--- NOTE | 2024-03-15 08:42 | Hospitalist Progress Note ---
Date of Service March 15, 2024 Assessment & Plan (1) Complicated UTI (urinary tract infection): Plan: Sepsis with septicemia, acute bacterial prostatitis Infected appearing UA on arrival - UTI due to perry catheter-Perry catheter exchanged the day prior to admission Sepsis due to cystoscopy procedure tachycardic, febrile, hypotensive, with leukocytosis post cystoscopy/catheter exchange No prior history of resistant infections on file Procalcitonin elevated consistent with gram-negative sepsis Patient met sepsis criteria. S/p 2000 cc NSS in the ER which meets IBW sepsis recommendations Repeat lactate normalized Urine culture revealing Serratia marcescens, resistant to Ceftriaxone Blood cultures revealing pansensitive Serratia marcescens Continue Cefepime, last day of antibiotics 03/27/24 > Recommended extended course of antibiotic for acute bacterial prostatitis (2) BPH NOS w ur obs/LUTS: Plan: Perry in place, bladder decompressed on CT Bladder scan as needed. No signs of obstruction at admitting assessment Can continue outpatient urology follow-up for BPH/LUTS; no evidence of acute obstruction on admission (3) Prediabetes: Plan: BSG 124 admission. Goal [id number] Trend BMP daily, if above goal can add SSI (4) BLANE (acute kidney injury): Plan: Admission creatinine 1.49, baseline creatinine approximately 1 Suspect prerenal in with urosepsis. Patient does have history of urinary obstruction however bladder is decompressed on CT Resolved, Cr 1.01 on 03/15 Plan Updated mother at bedside DVT prophylaxis: Lovenox CODE STATUS: Full code Admission and Anticipated Discharge Date Admission Date: March 13, 2024 Supervising Physician Co-Signing Physician Notes JASWINDER Supervision Note: I did not personally see or examine the patient today, but I verified all elizondo points of JASWINDER Lazaro's assessment and plan with the following exceptions/additions: None Subjective Patient seen and evaluated at bedside with his mother present. He reports that he is feeling significantly better today. He denies any nausea or bladder spasms today. He notes that his appetite is still reduced, but improved compared to yesterday. We discussed his urine and blood cultures, as well as his antibiotic regimen. No additional complaints or concerns at this time. Physical Exam Physical Exam: General: No acute distress, nondiaphoretic, well-developed, well-nourished. Skin: The skin was without rashes, erythema, edema, or bruising. Cardiac: Regular rate and rhythm without murmurs gallops or rubs. Pulm: Clear to auscultation bilaterally without wheezes, rales or rhonchi. No respiratory distress. 97% on room air. Abdominal: Soft, nontender, nondistended. Bowel sounds present. : Perry in place draining dark yellow urine. Neuro: A&O x3. No focal neurological deficits. Results & Data Results & Data Vital Signs (Past 12 Hours) Vital Signs Temp Pulse Pulse Resp BP Pulse Ox O2 Del Method 03/15/24 07:52 36.8 C 88 18 110/70 92 Room Air 03/15/24 02:35 36.9 C 81 18 103/67 93 Room Air 03/14/24 22:07 37.3 C 89 16 108/44 L 93 Room Air 03/14/24 21:36 843 H Laboratory Results Reviewed CBC Reviewed BMP Reviewed urine culture Reviewed blood culture PG Care Time/CCT Total # of Minutes Spent Total Time Spent with Patient: Total time spent is greater than 50% in coordination of care (as documented) at patient's floor/unit and/or counseling patient: Coding Level of Care Code 84014 SUB INP/OBS CARE 2/35MIN Diagnoses Complicated UTI (urinary tract infection) N39.0 BPH NOS w ur obs/LUTS N40.1 Prediabetes R73.03 BLANE (acute kidney injury) N17.9
[2024-03-16 06:25] LABS: Basophils # (auto) 0.01 K/uL (0.00-0.20); Basophils % (auto) 0.2 %; Eosinophils # (auto) 0.02 K/uL (0.00-0.50); Eosinophils % (auto) 0.4 %; Hematocrit (blood only) 41.2 % (42.0-52.0); Hemoglobin 14.2 g/dl (14.0-18.0); Immature Granulocytes # (auto) 0.02 K/uL (0.01-0.20); Immature Granulocytes % (auto) 0.4 %; Lymphocytes # (auto) 1.08 K/uL (1.20-3.40); Mean Corpuscular Hgb Conc 34.5 g/dL (32.0-36.0); Mean Corpuscular Volume 86.9 fL (80.0-100.0); Mean Platelet Volume 10.6 fL (9.4-12.4); Monocytes # (auto) 0.84 K/uL (0.11-0.59); Monocytes % (auto) 14.8 %; Neutrophils % (auto) 65.2 %; Platelet Count 142 K/uL (130-400); RDW Coefficient of Variation 13.2 % (11.5-14.5); RDW Standard Deviation 42.4 fL (36.4-46.3); Red Blood Count 4.74 M/uL (4.70-6.10); White Blood Count 5.67 K/ul (4.8-10.8)
[2024-03-16 06:43] LABS: BUN Creatinine Ratio 17.6 (10-20); Calcium 8.2 mg/dl (8.6-10.3); Creatinine Clr Calc Pharmacy 110.2 ml/min; Est GFR (African American) 114.3 ml/min; Est GFR (Non-African American) 98.6 ml/min; Potassium 3.7 mmol/L (3.5-5.1)
[2024-03-16] MEDS: ENOXAPARIN INJ 40 MG/0.4 ML SYR SQ SCH (08:52)
[2024-03-16 10:54] VITALS: BP 119/77; PULSE 75; RESP 16; TEMP 97.9; O2SAT 95
--- NOTE | 2024-03-16 15:04 | Discharge Summary ---
Discharge Summary Date of Service March 16, 2024 Principal Dx & Hospital Course #1 = Principal Diagnosis (1) Complicated UTI (urinary tract infection): Sepsis with septicemia, acute bacterial prostatitis Infected appearing UA on arrival - UTI due to perry catheter-Perry catheter exchanged the day prior to admission Sepsis due to cystoscopy procedure tachycardic, febrile, hypotensive, with leukocytosis post cystoscopy/catheter exchange No prior history of resistant infections on file Procalcitonin elevated consistent with gram-negative sepsis Patient met sepsis criteria. S/p 2000 cc NSS in the ER which meets IBW sepsis recommendations Repeat lactate normalized Urine culture revealing Serratia marcescens, resistant to Ceftriaxone Blood cultures revealing pansensitive Serratia marcescens Treated with Cefepime while hospitalized > Recommended extended course of antibiotic for acute bacterial prostatitis Discharged on Cipro BID, last day of antibiotics 03/27/24 Recommend urology follow-up (2) BPH NOS w ur obs/LUTS: Perry in place, bladder decompressed on CT Bladder scan as needed No signs of obstruction at admitting assessment Can continue outpatient urology follow-up for BPH/LUTS; no evidence of acute obstruction on admission (3) Prediabetes: BSG 124 admission. Goal [id number] - Last A1c was 6.1% in June 2023 (4) BLANE (acute kidney injury): Admission creatinine 1.49, baseline creatinine approximately 1 Suspect prerenal in with urosepsis. Patient does have history of urinary obstruction however bladder is decompressed on CT Resolved, Cr 1.01 on 03/15 Plan CODE STATUS: Full code Notes For Next Care Provider Patient is septic on arrival with septicemia secondary to acute UTI and acute bacterial prostatitis. Urine culture revealed Serratia marcescens, resistant to ceftriaxone. Blood cultures revealed pansensitive Serratia marcescens. Treated with cefepime while hospitalized. Discharged on ciprofloxacin, extended course due to acute bacterial prostatitis. Last day of antibiotics 03/27/2024. Recommended follow-ups with urology and PCP. Medication Changes From Visit Cipro twice daily until 03/27/2024 Zofran as needed for nausea Admission HPI Per Admitting Provider Aguila is a 48-year-old male with past medical history of BPH, urinary retention, prediabetes presents to the ER with fever/rigors post cystoscopy and following catheter exchange. Third with minimal drainage overnight. CTA/P: Bladder decompressed and catheter in good position. Bladder wall thickening consistent with cystitis, fat stranding adjacent to prostate gland? Prostatitis. Perirectal fat stranding likely reactive Leukocytosis of 12.4, lactate elevated on admission at 3.8 Bilirubin mildly elevated without transaminitis Procalcitonin elevated ____ Patient seen in the ER with his present. Reports he had a Perry exchanged yesterday which relieved his obstruction however was nauseous and had felt progressively unwell overnight. Endorses fever, chills, rigors, some discomfort at his Perry site, and poor output. Feels very dehydrated. Is nauseous. Denies diarrhea/wellington colored stools. No chest pain or chest pressure. Denies other medical problems including heart problems and lung problems. Medical History: Reviewed Medications: Reviewed Surgical History: Reviewed Family history: Reviewed Allergies: Reviewed Social History: Denies tobacco/etoh use Code Status: Full Admission Exam Per Admitting Provider General: A&Ox3. NAD. Cooperative. HEENT: Atraumatic, normocephalic. NORMA. vision/hearing grossly intact Pulm: CTAB A&P. -wheezes, -rales, -rhonchi. Symmetrical chest rise. No increased work of breathing. No respiratory distress. Cardiac: RRR, -mrg. Radial pulses intact and symmetrical. Abdominal: Nontender, nondistended, soft. BS present. : Perry in place draining dark yellow urine Ext: warm, dry Discharge Exam General: No acute distress, nondiaphoretic, well-developed, well-nourished. Skin: The skin was without rashes, erythema, edema, or bruising. Cardiac: Regular rate and rhythm without murmurs gallops or rubs. Pulm: Clear to auscultation bilaterally without wheezes, rales or rhonchi. No respiratory distress. 97% on room air. Abdominal: Soft, nontender, nondistended. Bowel sounds present. : Perry in place draining clear yellow urine. Neuro: A&O x3. No focal neurological deficits. Discharge Plan Discharge Items Patient Disposition: Home - Self-Care Reason For Visit: septic uti Discharge Diagnosis: Septicemia secondary to urinary tract infection (UTI) Activity: Resume your previous activity Non-emergency contact: Primary Care Provider and Urologist Call non-emergency contact if: you have any medication questions and your symptoms worsen Follow-up/Referrals: Montana Sidhu MD [Physician] - (Follow-up in 1 week) Izaiah Eason DO [Primary Care Provider] - (Follow-up in 1-2 weeks) Diet: Regular Addtl Attending Provider Instructions: Mr. Lloyd, You were admitted to the hospital due to sepsis from urinary tract infection (UTI) and prostatitis. You were treated with IV antibiotics while in the hospital and are being discharged with oral antibiotics to continue taking at home. Upon discharge from the hospital: * Take Ciprofloxacin (oral antibiotic) twice daily until 03/27/24. You can take one dose tonight (03/16/24) since you received your morning dose of IV antibiotic in the hospital, and then start your twice daily dosing tomorrow. It is important to complete this course of antibiotics, even if you feel better. Not completing the course of antibiotics can result in the infection returning and can make future infections harder to treat. * Take Tylenol as needed for pain/fever. Take Zofran as needed for nausea. * Continue your other medications as prescribed. * Follow-up with urology in their outpatient office in 1 week. * Follow-up with your PCP in 1-2 weeks. Please return to the hospital if you experience any of the following: Fever of 100.5 F or higher, shaking chills, fast heartbeat, fast breathing, trouble breathing, chest pain, severe nausea or uncontrolled vomiting, confusion, disorientation, dizziness, lightheadedness, severe pain, decreased urination, or passing out. It was a pleasure taking care of you while you were in the hospital, Cris Lazaro PA-C Pending Studies at Discharge: No Stand-Alone Forms: My [facility], Smoking Cessation Medications and DC Order Prescriptions: New ondansetron HCl 4 mg tablet 4 mg PO Q6H PRN (Reason: nausea and vomiting) Qty: 30 0RF ciprofloxacin HCl 500 mg tablet 500 mg PO BID Qty: 23 0RF Continued tamsulosin [Flomax] 0.4 mg capsule 0.4 mg PO DAILY Qty: 30 2RF oxybutynin chloride 5 mg tablet extended release 24hr 5 mg PO DAILY Qty: 90 3RF Rx Instructions: hasnt started medication yet Discharge Orders: Discharge Order (Routine); Ordered 03/16/24 Ordered By: Julieth Woodward/Other Patient Handouts: Urinary Tract Infections in Men Admission Data Admit Date/Time: 03/13/24 12:14 Attending Provider: Julieth Welch Admit Provider: Markus Lopez Primary Care Provider: Izaiah Eason Other Providers: Markus Lopez Other Interventions: Discharge Summary Assessment (RN) Last Done: 03/16/24 12:50 Hospital Stay Data Consultations 03/13/24 11:57 ED Decision to Admit Stat Diagnostic Imagining Performed Chest X-Ray 03/13/24 10:18 XR chest 1V portable CLINICAL HISTORY: Sepsis. COMPARISON STUDY: No previous studies for comparison. FINDINGS: There are low lung volumes. Lungs are clear. There is no pneumothorax or pleural effusion. Cardiac size is normal. Mediastinal contours are normal. There is no evidence for pulmonary edema. IMPRESSION: No acute cardiopulmonary findings. ACT 112: Negative or not required by law. Electronically signed by: Clive Funez M.D. 03/13/2024 11:20 AM Abdomen/Pelvis CT 03/13/24 10:[address] WITH IV CONTRAST CT DOSE: 1433.38 mGy.cm HISTORY: ?urosepsis TECHNIQUE: Multiaxial CT images of the abdomen and pelvis were performed fo llowing the use of intravenous contrast. A dose lowering technique was utilized adhering to the principles of ALARA. COMPARISON STUDY: Abdomen and pelvis CT 02/19/2024. FINDINGS: Bibasilar linear densities consistent with subsegmental atelectasis. No pneumoperitoneum. No pneumatosis. Small fat-containing umbilical hernia again noted. No hepatic or splenic masses. The adrenal glands, pancreas, and kidneys are unremarkable. Normal gallbladder. The ureters are normal and course and caliber. The urothelial thickening within the left pelvis and left ureter have resolved. The bladder completely decompressed by Perry catheter which appears in good position. This results in difficult evaluation of the bladder. The bladder appears to be thick-walled with adjacent fat stranding. Therefore, this favors a cystitis. The prostate gland and seminal vesicles remain enlarged. Minimal perirectal fat stranding is likely reactive to the bladder. No definite bowel wall thickening or obstruction. Normal appendix. There is also mild fat stranding adjacent to the seminal vesicles and prostate gland which has slightly progressed. This could be due to an associated prostatitis. No fluid collections to suggest an abscess. Normal caliber abdominal aorta. No retroperitoneal or pelvic lymphadenopathy. No pelvic free fluid. IMPRESSION: 1. The bladder is decompressed by a Perry catheter which is in good position. 2. Bladder wall thickening with adjacent fat stranding likely representing a cystitis. 3. There is also mild fat stranding adjacent to the enlarged prostate gland and seminal vesicles which may represent an associated prostatitis. 4. Minimal perirectal fat stranding is likely reactive to the bladder/prostate gland abnormality. No definite bowel wall thickening to suggest a proctitis. 4. Additional findings as described above. ACT 112: Negative or not required by law. Electronically signed by: Gautam Holt M.D. 03/13/2024 11:21 AM Pending Results Patient Have Any Pending Studies at Discharge: No Discharge Instructions Given to Patient (Per Discharging Provider) Mr. Lloyd, Tejinder were admitted to the hospital due to sepsis from urinary tract infection (UTI) and prostatitis. You were treated with IV antibiotics while in the hospital and are being discharged with oral antibiotics to continue taking at home. Upon discharge from the hospital: * Take Ciprofloxacin (oral antibiotic) twice daily until 03/27/24. You can take one dose tonight (03/16/24) since you received your morning dose of IV antibiotic in the hospital, and then start your twice daily dosing tomorrow. It is important to complete this course of antibiotics, even if you feel better. Not completing the course of antibiotics can result in the infection returning and can make future infections harder to treat. * Take Tylenol as needed for pain/fever. Take Zofran as needed for nausea. * Continue your other medications as prescribed. * Follow-up with urology in their outpatient office in 1 week. * Follow-up with your PCP in 1-2 weeks. Please return to the hospital if you experience any of the following: Fever of 100.5 F or higher, shaking chills, fast heartbeat, fast breathing, trouble breathing, chest pain, severe nausea or uncontrolled vomiting, confusion, disorientation, dizziness, lightheadedness, severe pain, decreased urination, or passing out. It was a pleasure taking care of you while you were in the hospital, Cris Lazaro PA-C Supervising Physician Co-Signing Physician Notes PA Supervision Note: I personally saw and examined the patient. I verified all elizondo points and agree with JASWINDER Lazaro with the following exceptions and/or additions: S-patient feeling much better, no abdominal pains, no shortness of breath or chest pains. His energy levels improved. He is eating and drinking and moving his bowels. O- Vitals reviewed Gen: AAOx3, NAD HEENT: Anicteric sclerae, EOMI CV: RRR no mgr nl S1S2 Pulm: CTAB no wcr Abd: +BS soft NT ND no masses or hernias, Perry catheter in place draining clear yellow urine Ext: No edema Skin: No rashes, warm/dry Neuro: Full strength throughout A/[id number]old male with BPH with urinary retention and indwelling Perry catheter, here with Serratia septicemia and UTI/acute prostatitis Much improved, discharged home on Cipro for total of 2 weeks Needs close follow-up with urology to discuss plans for TURP in the future Total Time Total Time Spent Total Time Spent (In Minutes): Greater than 30 minutes spent completing this discharge process including direct patient care, medication reconciliation, documentation, review of labs and images, and coordination of care. Coding Level of Care Code 81484 INP/OBS DISCH >30 MIN Diagnoses Complicated UTI (urinary tract infection) N39.0 BPH NOS w ur obs/LUTS N40.1 Prediabetes R73.03 BLANE (acute kidney injury) N17.9
== END 2024-03-16 13:51 | disposition home or self-care (01) | DRG 698 ==
LOC: ED 09:50 → SUATTDRO 12:14 → EDINP 12:14 → 2S 17:02
DX: R73.03 Prediabetes; N39.0 Urinary tract infection, site not specified; N40.1 Benign prostatic hyperplasia with lower urinary tract symptoms; N41.0 Acute prostatitis; T83.511A Infection and inflammatory reaction due to indwelling urethral catheter, initial encounter; T81.44XA Sepsis following a procedure, initial encounter; A41.53 Sepsis due to Serratia; Y92.019 Unspecified place in single-family (private) house as the place of occurrence of the external cause; B96.89 Other specified bacterial agents as the cause of diseases classified elsewhere; Y83.8 Other surgical procedures as the cause of abnormal reaction of the patient, or of later complication, without mention of misadventure at the time of the procedure; N17.9 Acute kidney failure, unspecified; Y81.2 Prosthetic and other implants, materials and accessory general- and plastic-surgery devices associated with adverse incidents; R33.9 Retention of urine, unspecified